=== PATIENT | male | born 1935 | race Caucasian/White ===

== ENCOUNTER 2017-10-22 06:19 | Day surgery (SDC) | payer MEDICARE, OTHER ==
[~2017-10-22] VITALS: Ht 182.9 cm; Wt 102.6 kg
[2017-10-22] VITALS (10 sets, daily range): BP systolic 123–137; BP diastolic 68–80
[~2017-10-22 06:19] MED LIST: ASPI-1265 PO; ATEN25TA PO; HYDR-565 PO; HYDR12.5 PO; MAGN400T6 PO; NAPR220C15 PO; OMEP20TA5 PO; PHEN-873 PO; SIMV20TA5 PO
[2017-10-22] MEDS ORDERED: Cefazolin 2GM/50ML dext iso,osmotic IVPB IV ONE (07:09)
[2017-10-22] MEDS ORDERED: famotidine 20mg tablet PO ONE (07:14)
[2017-10-22] MEDS ORDERED: ringers solution, lacted 1,000 ML IV SCH ×2 (07:14→09:00)
[2017-10-22] MEDS ORDERED: LIDOCAINE PATCH TOP (07:45)
[2017-10-22] MEDS ORDERED: DOCU100C41 PO (07:45)
[2017-10-22] MEDS ORDERED: GABA-532 PO (07:45)
[2017-10-22 07:47] LABS: BASOPHILS % (AUTO) 0.5 % (0-1); EOSINOPHILS # (AUTO) 0.2 X10'3 (0-0.9); EOSINOPHILS % (AUTO) 2.9 % (0-6); HEMATOCRIT 34.7 % (42.0-52.0); HEMOGLOBIN 11.8 g/dl (14.0-17.9); LYMPHOCYTES # (AUTO) 0.8 X10'3 (1.1-4.8); LYMPHOCYTES % (AUTO) 13.7 % (21-51); MEAN CORPUSCULAR HEMOGLOBIN 29.1 PG (27.0-31.0); MEAN CORPUSCULAR VOLUME 85.4 FL (78-98); MONOCYTES # (AUTO) 0.5 X10'3 (0-0.9); MONOCYTES % (AUTO) 8.7 % (2-12); NEUTROPHILS # (AUTO) 4.5 X10'3 (1.8-7.7); NEUTROPHILS % (AUTO) 74.2 % (42-75); PLATELET COUNT 171 X10'3 (140-440); RED BLOOD COUNT 4.06 X10'6 (4.70-6.10); RED CELL DISTRIBUTION WIDTH 14.6 % (11.5-14.5)
[2017-10-22 07:49] LABS: ALANINE AMINOTRANSFERASE 14 U/L (12-78); ALBUMIN 3.2 G/DL (3.4-5.0); ALBUMIN/GLOBULIN RATIO 0.9 (1.1-1.5); ALKALINE PHOSPHATASE 20 IU/L (46-116); ANION GAP 8 (8-16); ASPARTATE AMINO TRANSFERASE 17 U/L (10-37); BILIRUBIN,TOTAL 0.5 MG/DL (0.1-1.0); BLOOD UREA NITROGEN 14 MG/DL (7-18); BUN/CREATININE RATIO 8.6 (5.4-32.0); CALCIUM 9.2 MG/DL (8.5-10.1); CHLORIDE 99 MMOL/L (99-107); CREATININE 1.62 MG/DL (0.60-1.10); GLUCOSE 99 MG/DL (70-104); POTASSIUM 3.8 MMOL/L (3.5-5.1); SODIUM 136 MMOL/L (135-145); TOTAL CARBON DIOXIDE 28.6 MMOL/L (24-32); TOTAL PROTEIN 6.8 G/DL (6.4-8.2); eGFR 41 ML/MIN
[2017-10-22] MEDS ORDERED: epiNEPHrine 1 mg/ml inj ONE (08:24)
[2017-10-22] MEDS ORDERED: LIDOcaine 1% 30ml preserv. free vial ONE (08:24)
[2017-10-22] MEDS ORDERED: BUPIVAcaine/PF 2.5mg/ml (0.25%) 10ml vial ONE (08:24)
[2017-10-22] MEDS ORDERED: labetalol 20mg/4ml (5mg/ml) syringe IV PRN (09:00)
[2017-10-22] MEDS ORDERED: ondansetron/PF 4mg/2ml inj IV PRN (09:00)
[2017-10-22] MEDS ORDERED: morphine 4 MG/ML inj SYRINge IV PRN ×2 (09:00)
[2017-10-22] MEDS ORDERED: fentaNYL/PF 50MCG/1 ML 2ML syringe IV PRN ×2 (09:00)
[2017-10-22] MEDS ORDERED: hydrALAZINE 20mg/ml inj. IV PRN (09:00)
[2017-10-22] MEDS ORDERED: fentaNYL/PF 50MCG/1 ML 2ML syringe ONE (09:05)
[2017-10-22] MEDS ORDERED: midazolam 2 mg/2 ml injection ONE (09:06)
[2017-10-22] MEDS ORDERED: propofol inj 20 ML IV ONE (09:06)
[2017-10-22] MEDS ORDERED: LIDOcaine 2% (20mg/ml) 5ml vial ONE (09:06)
[2017-10-22] MEDS ORDERED: dexamethasone sod phosphate 4mg/ml inj. ONE (09:06)
[2017-10-22] MEDS ORDERED: ePHEDrine 50MG/ML INJ. ONE (09:27)
== END 2017-10-22 11:31 | disposition home or self-care (01) ==
LOC: PAS 06:19
PROVIDERS: ATTEND Surgery
DX: C82.45 Follicular lymphoma grade IIIb, lymph nodes of inguinal region and lower limb (principal); C83.35 Diffuse large B-cell lymphoma, lymph nodes of inguinal region and lower limb; I44.7 Left bundle-branch block, unspecified; I12.9 Hypertensive chronic kidney disease with stage 1 through stage 4 chronic kidney disease, or unspecified chronic kidney disease; N18.3 Chronic kidney disease, stage 3 (moderate); M19.90 Unspecified osteoarthritis, unspecified site; E78.5 Hyperlipidemia, unspecified; K21.9 Gastro-esophageal reflux disease without esophagitis; N40.0 Benign prostatic hyperplasia without lower urinary tract symptoms; F32.9 Major depressive disorder, single episode, unspecified; Z72.89 Other problems related to lifestyle; Z90.49 Acquired absence of other specified parts of digestive tract; Z96.652 Presence of left artificial knee joint; Z79.891 Long term (current) use of opiate analgesic; Z79.82 Long term (current) use of aspirin; Z87.891 Personal history of nicotine dependence; Z98.890 Other specified postprocedural states; Z79.899 Other long term (current) drug therapy
CPT/HCPCS: 36415; 38500; 80053; 85025; 88341; 88342; 93005; J0690; J1100; J2001; J2250; J2704; J3010; J3490; J7120; 88305; 88331; A7000; J0171